=== PATIENT | female | born 1980 | race Caucasian/White ===

== ENCOUNTER 2017-01-21 10:03 | Emergency (ER) | payer MEDICAID ==
[~2017-01-21] VITALS: Wt 70.9 kg
[~2017-01-21 10:03] MED LIST: CEPH-443 PO
[2017-01-21 11:41] LABS: ADD UMIC YES; URINE BILIRUBIN (Dip) NEGATIVE (NEGATIVE); URINE BLOOD (Dip) NEGATIVE (NEGATIVE); URINE COLOR LT. YELLOW (YELLOW); URINE GLUCOSE (Dip) NEGATIVE (NEGATIVE); URINE KETONES (Dip) NEGATIVE (NEGATIVE); URINE LEUKOCYTE ESTERASE (Dip) 1+ (NEGATIVE); URINE NITRITE (Dip) NEGATIVE (NEGATIVE); URINE TOTAL PROTEIN (Dip) NEGATIVE (NEGATIVE); URINE UROBILINOGEN (Dip) 0.2 E.U./dL (0.1-1.0)
[2017-01-21 11:47] LABS: ADD SCAN DIFF NO
[2017-01-21 11:52] LABS: BASOPHILS % 0.3 % (0.0-2.0); EOSINOPHILS # 0.1 10^3/ul (0.0-0.5); EOSINOPHILS % 1.3 % (0.0-7.0); HEMATOCRIT 36.1 % (37.0-47.0); HEMOGLOBIN 11.8 g/dl (12.0-16.0); LYMPHOCYTES # 1.5 10^3/ul (0.8-2.9); LYMPHOCYTES % 17.5 % (15.0-51.0); MEAN CORPUSCULAR HEMOGLOBIN 27.2 pg (29.0-33.0); MEAN CORPUSCULAR HGB CONC 32.7 g/dl (32.0-37.0); MEAN CORPUSCULAR VOLUME 83.2 fl (82.0-101.0); MEAN PLATELET VOLUME 9.9 fl (7.4-10.4); MONOCYTE # 0.3 10^3/ul (0.3-0.9); MONOCYTES % 3.6 % (0.0-11.0); NEUTROPHIL # 6.8 10^3/ul (1.6-7.5); PLATELET COUNT 329 10^3/UL (140-415); RED BLOOD COUNT 4.34 10^6/ul (4.20-5.40); WHITE BLOOD COUNT 8.8 10^3/ul (4.8-10.8)
[2017-01-21 11:55] LABS: BACTERIA,URINE FEW; SQUAMOUS EPITHELIAL CELL,UR FEW; URINE RBCS NONE SEEN /HPF (0)
--- NOTE | 2017-01-21 11:55 | RADRPT ---
PROCEDURE: First trimester obstetrical ultrasound. CLINICAL INDICATION: , pelvic pain TECHNIQUE: Transabdominal and transvaginal sotelo scale and color Doppler ultrasound of the uterus . COMPARISON: Pelvic ultrasound 06/01/2016 FINDINGS: A single intrauterine gestation is present within the uterine fundus. No evidence of extrauterine gestation. [place]-rump length: 6.54 cm heart rate: 150 Beats per minute Posterior placenta without evidence of abruption or previa. No evidence of subchorionic hemorrhage. Right ovary not identified. Normal size and appearance of the left ovary. Free fluid: None. IMPRESSION: Single intrauterine gestation with an estimated gestational age of 12 weeks 6 days by ultrasound cri teria. No evidence of subchorionic hemorrhage is seen. RPTAT: AADD .Pete Saez MD, Date Time Electronically viewed and signed by .Pete Saez MD, on 01/21/2017 11:54 .B/
[2017-01-21] MEDS ORDERED: NITR-58 PO (12:59)
--- NOTE | 2017-01-21 13:12 | ERD ---
ER Documentation Chief Complaint Date/Time DATE: 01/21/17 TIME: 13:10 Chief Complaint vag bleed 16wks . with mild cramping. no vomiting. mild dysuria HPI This is a 37-year-old female presents to the ER for vaginal spotting that started yesterday. Patient is currently 16 weeks . Patient does admit to urinary frequency and dysuria. She also admits to suprapubic pain. A2. Denies any vaginal discharge. Last normal menstrual period was September. ROS 12 point review of systems was done, all negative except per HPI. Medications Home Meds Active Scripts Nitrofurantoin Monohyd Macrocr* (Macrobid*) 100 Mg Capsr, 100 MG PO BID for 7 Days, CAP Prov:GREGORIO BRAN 01/21/17 Cephalexin* (Keflex*) 500 Mg Capsule, 500 MG PO QID for 7 Days, CAP Prov:RAFA MORFIN PA-C 06/01/16 Allergies Allergies: Coded Allergies: No Known Allergy (Unverified , 01/21/17) PMhx/Soc Medical and Surgical Hx: pt denies Medical Hx History of Surgery: Yes (caesarian section; gallbladder surgery) Hx Alcohol Use: Yes Hx Substance Use: No Hx Tobacco Use: No Smoking Status: Never smoker Physical Exam Vitals Vital Signs Date Time Temp Pulse Resp B/P Pulse Ox O2 Delivery O2 Flow Rate FiO2 01/21/17 10:05 98.7 71 20 137/60 98 Physical Exam GENERAL: The patient is well developed and appropriate for usual state of health , in no apparent distress. HEENT: Atraumatic. Conjunctivae are pink. Pupils equal, round, and reactive to light. Extraocular muscles are grossly intact. Bilateral tympanic membranes are clear with no evidence of erythema, effusion or dulling of the light reflex. The oropharynx is clear with no erythema or exudates. NECK: C-spine is soft and supple. There is no cervical lymphadenopathy. CHEST: Clear to auscultation bilaterally. There are no rales, wheezes or rhonchi. HEART: Regular rate and rhythm. No murmurs, clicks, rubs or gallops. ABDOMEN: Soft, nontender and nondistended. Good bowel sounds. No rebound or guarding. No gross peritonitis. No gross organomegaly or masses. No [place] sign or McBurney point tenderness. BACK: No midline or flank tenderness. EXTREMITIES: Equal pulses bilaterally. There is no peripheral clubbing, cyanosis or edema. No focal swelling or erythema. Full range of motion. Grossly neurovascularly intact. NEURO: Alert and oriented. Cranial nerves II through XII are intact. Motor strength in all 4 extremities with 5/5 strength. Sensation grossly intact. Normal speech and gait. SKIN: There is no apparent rash or petechia. The skin is warm and dry. Result Diagram: 01/21/17 1119 Results 24 hrs Laboratory Tests Test 01/21/17 11:14 01/21/17 11:19 Urine Bacteria FEW Urine Bilirubin NEGATIVE Urine Clarity CLEAR Urine Color LT. YELLOW Urine Glucose NEGATIVE% Urine Hemoglobin NEGATIVE Urine Ketones NEGATIVE Urine Leukocyte Esterase 1+ Urine Microscopic RBC NONE SEEN/HPF Urine Microscopic WBC 2-5/HPF Urine Nitrite NEGATIVE Urine Specific [place] 1.025 Urine Squamous Epithelial Cells FEW Urine Total Protein NEGATIVE Urine Urobilinogen 0.2 E.U./dL Urine pH 6.0 Basophils # 0.010^3/ul Basophils % 0.3% Beta HCG, Quantitative 22741.0mIU/ml Eosinophils # 0.110^3/ul Eosinophils % 1.3% Hematocrit 36.1% Hemoglobin 11.8g/dl Lymphocytes # 1.510^3/ul Lymphocytes % 17.5% Mean Corpuscular Hemoglobin 27.2pg Mean Corpuscular Hemoglobin Concent 32.7g/dl Mean Corpuscular Volume 83.2fl Mean Platelet Volume 9.9fl Monocytes # 0.310^3/ul Monocytes % 3.6% Neutrophils # 6.810^3/ul Neutrophils % 77.0% Nucleated Red Blood Cells # 0.010^3/ul Nucleated Red Blood Cells % 0.0/100WBC Platelet Count 39930^3/UL Red Blood Count 4.3410^6/ul Red Cell Distribution Width 16.0% White Blood Count 8.810^3/ul Procedures/MDM Differential diagnosis: Threatened , missed , incomplete , ectopic , molar , UTI, pyelonephritis. Patient does have a urinary tract infection suspicion for pyelonephritis is low. Suspicion for any placental abnormalities low. Ultrasound is completely normal. The patient be sent home with Macrobid. She is to follow-up with their primary care doctor within 1-2 days or return to ER sooner if symptoms worsen. My Medical decision making was shared with the patient she understands and agrees with plan. Departure Diagnosis: Primary Impression: UTI (urinary tract infection) Condition: Stable Patient Instructions: Understanding Urinary Tract Infections (UTIs) Additional Instructions: Llame al doctor MAANA y gurwinder alfred AMANDA PARA DENTRO DE 1-2 ZAYAS.Dgale a la secretaria que nosotros le instruimos hacer esta amanda.Avise o llame si momin condicin se empeora antes de la amanda. Regresa aqui si peor o no mejor. GREGORIO BRAN Jan 21, 2017 13:12
== END 2017-01-21 13:45 | disposition home or self-care (01) ==
LOC: FTE 10:03
DX: O23.41 Unspecified infection of urinary tract in pregnancy, first trimester (principal); R10.2 Pelvic and perineal pain; Z3A.12 12 weeks gestation of pregnancy
CPT/HCPCS: 36415; 76801; 81001; 84702; 85025; 86900; 86901; Z7502; 81003